=== PATIENT | male | born 1965 | race Caucasian/White ===

== ENCOUNTER 2025-03-30 14:05 | Emergency (ER) | payer OTHER ==
[2025-03-30 14:38] VITALS: TEMP 97.7; BMI 44.1
[2025-03-30 15:43] LABS: RDW 13.4 % (12.2-16.1)
[2025-03-30 15:44] LABS: IMMATURE PLATELET FRACTION # 4.60 x10^3/uL; MCHC 34.4 g/dl (32.3-36.5); MEAN CELL VOLUME 110.4 fl (79.0-92.2); MEAN PLT VOLUME 10.5 fl (9.4-12.4)
[2025-03-30 15:52] LABS: INR 1.39 (0.83-1.09); PROTHROMBIN TIME (PATIENT) 15.2 SEC (9.7-13.0)
[2025-03-30 15:55] LABS: ACTIVATED PTT 29.8 SECONDS (25.2-36.5)
[2025-03-30 16:00] LABS: GLUCOSE,RANDOM 78 mg/dL (74-106); TOT PROT 6.3 g/dl (6.4-8.2)
[2025-03-30 16:01] LABS: CO2 24 mmol/L (21-32)
[2025-03-30 16:03] LABS: ALK PHOS 299 U/L (40-150)
[2025-03-30 16:05] LABS: CREATININE 0.65 mg/dL (0.55-1.3); SGOT/AST 228 U/L (5-34); SGPT/ALT 78 U/L (0-55)
[2025-03-30 16:17] LABS: N-TERMINAL BNP 55.9 pg/mL (0-299.9)
[2025-03-30 16:28] LABS: BG HCT 41.0 % (35.4-49); VENOUS BASE EXCESS 1.2 mmol/L (-2-2); VENOUS O2 SATURATION 78.2 % (70-80); VENOUS PCO2 39.6 mmHg (38-52); VENOUS PH 7.427 (7.310-7.410)
[2025-03-30 16:28] LABS: HCV DIAGNOSTIC IN-HOUSE W/RFLX NON-REACTIVE (NONREACTIVE)
[2025-03-30 16:29] LABS: HIV INTERPRETATION NEGATIVE (NEGATIVE)
[2025-03-30] MEDS ORDERED: MAGNESIUM SULFATE IN WATER 2 GM/50 ML IVPB IVPB ONE (17:23)
[2025-03-30] MEDS ORDERED: levETIRAcetam 500 MG/5 ML INJECTION VIAL IVPB ONE (17:23)
[2025-03-30] MEDS: levETIRAcetam 500 MG/5 ML INJECTION VIAL IVPB ONE (17:30)
[2025-03-30] MEDS: MAGNESIUM SULFATE IN WATER 2 GM/50 ML IVPB IVPB ONE (17:50)
[2025-03-31 00:28] VITALS: BP 160/78; PULSE 92; RESP 17
== END 2025-03-31 00:29 | disposition short-term general hospital (02) ==
LOC: JER 14:05
PROC: 3E033GC Introduction of Other Therapeutic Substance into Peripheral Vein, Percutaneous Approach (ICD-10-PCS; principal; 2025-03-30)
PROC: 3E033GC Introduction of Other Therapeutic Substance into Peripheral Vein, Percutaneous Approach (ICD-10-PCS; 2025-03-30)
DX: R60.1 Generalized edema (principal); K74.60 Unspecified cirrhosis of liver
CPT/HCPCS: 36415; 71045-TC-FY; 80053; 82248; 82803; 82977; 83735; 83880; 84100; 84484; 85027; 85610; 85730; 86803; 86850; 86900; 86901; 87389; 87637-QW; 93005; 93010; 96365; 96374; 99285-25